=== PATIENT | female | born 1950 | race Two or more races ===

== ENCOUNTER 2018-02-20 14:55 | Emergency (ER) | payer OTHER ==
[~2018-02-20] VITALS: Ht 154.9 cm; Wt 53.5 kg
[~2018-02-20 14:55] MED LIST: [UNRECOGNIZED DRUG - OTHER]
== END 2018-02-20 23:46 | disposition home or self-care (01) ==
LOC: ER 14:55
DX: S00.12XA Contusion of left eyelid and periocular area, initial encounter (principal); S00.83XA Contusion of other part of head, initial encounter; R11.2 Nausea with vomiting, unspecified; R42 Dizziness and giddiness; W18.09XA Striking against other object with subsequent fall, initial encounter; Y93.89 Activity, other specified; Y92.89 Other specified places as the place of occurrence of the external cause; Y99.8 Other external cause status

== ENCOUNTER 2022-11-19 03:33 | Emergency (ER) | payer OTHER ==
[~2022-11-19] VITALS: Ht 170.2 cm; Wt 49.0 kg
[2022-11-19] MEDS ORDERED: GLUMETZA500 MG PO (03:41)
[2022-11-19] MEDS ORDERED: LEVOTHYROXINE25 MCG PO (03:42)
[2022-11-19] MEDS ORDERED: LIPITOR80 MG PO (03:42)
[2022-11-19] MEDS ORDERED: DESOXYN5 MG PO (03:45)
[2022-11-19] MEDS ORDERED: BACTRIM DS TAB1 EACH PO (09:19)
== END 2022-11-19 09:26 | disposition home or self-care (01) ==
LOC: ER 03:33
DX: N39.0 Urinary tract infection, site not specified (principal); Z88.0 Allergy status to penicillin; E11.9 Type 2 diabetes mellitus without complications; Z79.84 Long term (current) use of oral hypoglycemic drugs; Z87.442 Personal history of urinary calculi; R10.32 Left lower quadrant pain

== ENCOUNTER 2025-01-04 07:25 | Day surgery (SDC) | payer OTHER ==
[~2025-01-04 07:25] MED LIST changes: +BACTRIM DS TAB1 EACH PO; +DESOXYN5 MG PO; +GLUMETZA500 MG PO; +LEVOTHYROXINE25 MCG PO; +LIPITOR80 MG PO
[2025-01-04] MEDS ORDERED: ONDANSETRON HCL 2 MG/ML VIAL IV ONE (10:45)
[2025-01-04] MEDS ORDERED: MIDAZOLAM HCL 2 MG/2 ML VIAL IV ONE (10:45)
[2025-01-04] MEDS ORDERED: fentaNYL CITRATE 50 MCG/ML AMPUL IV PUSH ONE (10:45)
[2025-01-04] MEDS ORDERED: DIPHENHYDRAMINE HCL 50 MG/ML VIAL 1ML IV ONE (10:45)
== END 2025-01-04 12:00 | disposition home or self-care (01) ==
LOC: AMB-ENDOS 07:25
PROVIDERS: ATTEND Colon & Rectal Surgery
DX: D12.0 Benign neoplasm of cecum (principal); K63.5 Polyp of colon; Z88.0 Allergy status to penicillin

== ENCOUNTER 2025-02-24 09:48 | Emergency (ER) | payer OTHER ==
[~2025-02-24] VITALS: Ht 154.9 cm; Wt 49.9 kg
[2025-02-24] MEDS ORDERED: LEVALBUTEROL HCL 1.25 MG/3 ML SOLUTION IH ONE ×2 (10:45→11:10)
[2025-02-24] MEDS ORDERED: IPRATROPIUM BROMIDE 0.5 MG/2.5 ML AMPUL.NEB IH ONE ×2 (10:45→11:10)
[2025-02-24] MEDS ORDERED: MAGNESIUM SULFATE IN WATER 2 GM/50 ML PIGGYBAG IV ONE (10:45)
[2025-02-24 11:17] LABS: BASO % 0.4 % (0.1-1.2); EOS # 0.07 (0.04-0.54); EOS % 0.6 % (0.7-7.0); HEMATOCRIT 43.1 % (34.1-44.9); HEMOGLOBIN 14.1 g/dL (11.2-15.7); LYMPH % 18.2 % (19.3-53.1); MEAN CORPUSCULAR HEMOGLOBIN 30.3 pg (25.6-32.2); MONO # 1.13 (0.24-0.82); MONO % 10.3 % (4.7-12.5); NEUT # 7.66 (1.56-6.13); PLATELET COUNT 253 K/uL (163-369); RED BLOOD COUNT 4.66 M/uL (3.93-5.22); RED CELL DISTRIBUTION WIDTH 15.8 % (11.6-14.4)
[2025-02-24 11:27] LABS: COVID-19 AG NEGATIVE (NEGATIVE); INFLUENZA A AG NEGATIVE (NEGATIVE); INFLUENZA B AG NEGATIVE (NEGATIVE)
== END 2025-02-24 12:09 | disposition home or self-care (01) ==
LOC: ER 09:48
PROVIDERS: General Practice
DX: J44.89 Other specified chronic obstructive pulmonary disease (principal); J40 Bronchitis, not specified as acute or chronic; Z88.0 Allergy status to penicillin; E78.00 Pure hypercholesterolemia, unspecified; C50.919 Malignant neoplasm of unspecified site of unspecified female breast; Z20.822 Contact with and (suspected) exposure to COVID-19
CPT/HCPCS: 36415; 71046; 94640; 99284; J3475